=== PATIENT | female | born 1950 | race Caucasian/White ===

== ENCOUNTER → 2022-09-09 | Outpatient (CLI) | payer SELFPAY ==
--- NOTE | 2022-09-09 13:28 | CT_ITS ---
STUDY: CT RIGHT SHOULDER REASON FOR EXAM: Female, 71 years old. DISLOCATED HUMERUS RADIATION DOSAGE (If Supplied By Facility): CTDIvol = ( 22.98 ) mGy, DLP = ( 422.45 ) mGycm TECHNIQUE: The patient was scanned in a multi detector CT scanner. High resolution transaxial imaging was performed without the administration of intravenous contrast material. Sagittal and coronal images were reconstructed. Individualized dose optimization techniques were used for this CT. COMPARISON: None. FINDINGS: There is evidence of anterior inferior dislocation of the glenohumeral joint on the right side. There is evidence of a avulsion type fracture along the medial inferior aspect of the glenoid. Normal humeral head, neck and tuberosities. Normal coracoid process. Normal visualized lateral clavicle. 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 There is a Type II morphology (curved), with a neutral orientation. Soft tissue swelling. CT/Extremity Upper without Contra IMPRESSION: Anterior inferior dislocation with a fracture through the inferior medial portion of the glenoid rim. Electronically Signed: Chandana Sharp MD at 14:17 EST ,
== END | disposition home or self-care (01) ==
PROVIDERS: PCP Family Medicine; Referring Provider Orthopaedic Surgery; Visit Provider Orthopaedic Surgery
DX: S43.014A Anterior dislocation of right humerus, initial encounter (principal); S52.90XA Unspecified fracture of unspecified forearm, initial encounter for closed fracture; S43.034A Inferior dislocation of right humerus, initial encounter; S42.91XA Fracture of right shoulder girdle, part unspecified, initial encounter for closed fracture; S42.144A Nondisplaced fracture of glenoid cavity of scapula, right shoulder, initial encounter for closed fracture
CPT/HCPCS: 73200

== ENCOUNTER → 2022-09-23 | Outpatient (CLI) | payer SELFPAY ==
[2022-09-23 11:54] LABS: Anion Gap 8 (5-15); BUN 13 mg/dL (7-18); BUN/Creat Ratio 18.6 RATIO (10-20); Chloride 108 mmol/L (98-107); EST Glomerular Filtration Rate 88 mL/min (>60); Est Glom Filt Rate - Afr Amer 106 mL/min (>60); Glucose 129 mg/dL (74-106); Potassium 3.7 mmol/L (3.5-5.1); Sodium Level 142 mmol/L (136-145)
== END | disposition home or self-care (01) ==
PROVIDERS: PCP Family Medicine
DX: S42.91XA Fracture of right shoulder girdle, part unspecified, initial encounter for closed fracture (principal)
CPT/HCPCS: 36415; 80048